=== PATIENT | male | born 1980 | race Caucasian/White ===

== ENCOUNTER 2021-03-26 08:31 | Outpatient (REF) | payer SELFPAY ==
[2021-03-26 16:07] LABS: HCT 44.8 % (40.0-50.0); HGB 15.2 g/dL (13.5-17.5); MCH 29.9 pg (27.0-33.0); MCHC 33.9 % (32.0-36.0); MCV 88.2 fL (80-95); MPV 14.2 fL (8.0-11.0); Platelet Count 185 10^3/uL (130-400); RBC 5.08 10^6/uL (4.36-5.78); RDW 11.8 % (11.8-14.1); RDW-SD 38.3 fL
[2021-03-26 16:27] LABS: ALT 52 U/L (16-63); AST 27 U/L (15-37); Albumin 4.5 g/dL (3.4-5.0); Alkaline Phosphatase 83 U/L (46-116); Anion Gap 9.5 mmol/L (3-11); BUN 17 mg/dL (7-18); Bilirubin, Total 0.4 mg/dL (0.2-1.0); CO2 27.5 mmol/L (21.0-32.0); CREATININE 0.9 mg/dL (0.70-1.30); Calcium 9.4 mg/dL (8.5-10.1); Calculated LDL 158 mg/dL (<100); Chloride 104 mmol/L (98-107); Cholesterol 215 mg/dL (<200); Glucose 84 mg/dL (74-106); HDL Cholesterol 45 mg/dL (40-60); Potassium 4.2 mmol/L (3.5-5.1); Sodium 141 mmol/L (136-145); Total Protein 7.5 g/dL (6.4-8.2); Triglyceride 61 mg/dL (<150)
== END 2021-03-26 08:32 | disposition home or self-care (01) ==
LOC: NCHCN 08:31
PROVIDERS: Visit Provider Physician Assistant
DX: Z00.00 Encounter for general adult medical examination without abnormal findings (principal); Z13.0 Encounter for screening for diseases of the blood and blood-forming organs and certain disorders involving the immune mechanism; Z13.228 Encounter for screening for other metabolic disorders; Z13.220 Encounter for screening for lipoid disorders
CPT/HCPCS: 80053; 80061; 85027

== ENCOUNTER 2022-05-12 18:49 | Outpatient (REF) | payer OTHER, SELFPAY ==
[2022-05-14 10:45] LABS: COVID-19 RT-PCR UVMMC Result Negative (Negative)
== END 2022-05-12 18:50 | disposition home or self-care (01) ==
LOC: LBN 18:49
PROVIDERS: Visit Provider Physician Assistant Medical
DX: Z20.822 Contact with and (suspected) exposure to COVID-19 (principal); R53.81 Other malaise
CPT/HCPCS: U0003

== ENCOUNTER 2022-08-17 20:42 | Outpatient (REF) | payer OTHER, SELFPAY ==
[2022-08-17 20:15] LABS: Calculated LDL 132 mg/dL (<100); Cholesterol 212 mg/dL (<200); HDL Cholesterol 46 mg/dL (40-60); TSH 2.48 uIU/mL (0.36-3.74); Triglyceride 173 mg/dL (<150)
== END 2022-08-17 20:43 | disposition home or self-care (01) ==
LOC: NCHCN 20:42
PROVIDERS: Visit Provider Physician Assistant
DX: R53.83 Other fatigue (principal); E78.5 Hyperlipidemia, unspecified
CPT/HCPCS: 80061; 84439; 84443

== ENCOUNTER 2024-08-02 00:49 | Outpatient (CLI) | payer OTHER, SELFPAY ==
--- OUTSIDE RECORDS SUMMARY | 2024-08-02 00:53 | XMS_ITS | Encounter Summary ---
Author Organization [facility] Address [address] [place] [address] Care Team Providers Care Dinkey Operator Name Role Phone Unavailable Primary Care Provider Unavailabl e Encounter Details Date Type Department Care Team (Late st Contact Info) Description 05/13/2022 Lab Requisition [facility] Pathology & Laboratory Medicine - [facility] [address] [place] [address] Outr Resulting Lab, Provider Social History Tobacco Use Types Packs/Day Years Used Date Smoking Tobacco: Never Assessed Sex and Gender Information Value Date Recorded Sex Assigned at Not on file Gender Identity Not on file Sexual Orientation Not on file documented as of this encounter Plan of Treatment Not on file documented as of this encounter Procedures Procedure Name Priority Date/Time Associated Diagnosis Comments ZZCOVID-19 TEST [facility] PCR Today 05/12/2022 17:19 EDT COVID-19 TESTING Routine 05/12/2022 17:1 9 EDT documented in this encounter Results * COVID-19 TEST [facility] PCR (05/12/2022 17:19 EDT) Swab 05/12/2022 17:1 9 EDT 05/13/2022 16:44 EDT Provider Outr Resulting Lab MICROBIOLOGY - GENERAL ORDERABLES [facility] [address] [place] [address] * COVID-19 TESTING (05/12/2022 17:19 EDT) COVID-19 rt-PCR Result Negative Negative 05/14/2022 10:39 EDT [facility] Comment: This test has not been FDA cleared or approved. This test has been authorized by FDA under an EUA for use by authorized laboratories. This test has been authorized only for detection of nucleic acid from 2019-nCoV, not for any other viruses or pathogens. This test is only authorized for the duration of the declaration that circumstances exist justifying the authorization of emergency use of in vitro diagnostic tests for detection and/or diagnosis of 2019-nCoV under section 564(b)(1) of Act, 21 U.S.C ?? 360bbb-3(b) (1), unless the authorization is terminated or revoked sooner. Negative results do not preclude 2019-nCoV infection and should not be used as the sole basis for treatment or other patient management decisions. Negative results must be combined with clinical observations, patient history, and epidemiological information. Testing was performed using the alexis SARS-CoV-2 assay ([employer] on the Alexis 6800 System Performing Lab [facility] [address] [facility] 05/14/2022 10:39 EDT [facility] Swab 05/12/2022 17:1 9 EDT 05/13/2022 16:44 EDT Provider Outr Resulting Lab MICROBIOLOGY - GENERAL ORDERABLES [facility] [address] [place] [address] documented in this encounter Visit Diagnoses Not on filedocumented in this encounter
--- OUTSIDE RECORDS SUMMARY | 2024-08-02 00:53 | XMS_ITS | Referral Summary ---
Author Organization [facility] Address [address] [place] [address] Care Team Providers Care Surgery Aide Name Role Phone Unavailable Primary Care Provider Unavailabl e Social History Tobacco Use Types Packs/Day Years Used Date Smoking Tobacco: Never Assessed Sex and Gender Information Value Date Recorded Sex Assigned at Not on file Gender Identity Not on file Sexual Orientation Not on file Plan of Treatment Not on file
--- OUTSIDE RECORDS SUMMARY | 2024-08-02 00:53 | XMS_ITS | Clinical Summary ---
Author Organization [facility] Address [address] [place] [address] Care Team Providers Care Die Setter Name Role Phone Unavailable Primary Care Provider Unavailabl e Social History Tobacco Use Types Packs/Day Years Used Date Smoking Tobacco: Never Assessed Sex and Gender Information Value Date Recorded Sex Assigned at Not on file Gender Identity Not on file Sexual Orientation Not on file Plan of Treatment Health Maintenance Due Date Last Done Comments Hepatitis C Screen 1980 Hepatitis B Vaccine (1 of 3 - 19+ 3-dose series) 11/26 COVID-19 Vaccine (2022-24 season) 2023
--- NOTE | 2024-08-02 08:27 | DI.RAD_ITS ---
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 TECHNIQUE: 2D digital imaging was performed. COMPARISON: No exams were available for comparison FINDINGS: 3 views No evidence of fracture or diastasis of the Lisfranc joint. There are advanced degenerative changes in the great toe metatarsophalangeal joint with relatively un iform advanced joint space narrowing as well as marginal osteophytes on both sides the joint. Also d egenerative subarticular cysts. Other MTP joints appear unremarkable as do the tarsal metatarsal alejo nts. No pes planus. Accessory os supra navicularis incidentally noted. 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 DATA REPOSITORY: RADIATION DOSE DELIVERED:
== END 2024-08-02 01:09 ==
LOC: DI 00:49
PROVIDERS: Visit Provider Physician Assistant
DX: M19.071 Primary osteoarthritis, right ankle and foot (principal)
CPT/HCPCS: 73630

== ENCOUNTER 2024-10-16 09:48 | Emergency (ER) | payer OTHER, SELFPAY ==
[2024-10-16 09:57] VITALS: BP 133/84; PULSE 80; RESP 20; TEMP 36.8; O2SAT 98
[2024-10-16 10:00] VITALS: BP 133/84; PULSE 80; RESP 20; TEMP 36.8; O2SAT 98
--- NOTE | 2024-10-16 10:30 | DI.RAD_ITS ---
Exam(s) XR CHEST 2V PA LATERAL EXAM: XR CHEST 2V PA LATERAL CLINICAL HISTORY: chest pain after swallowing fb TECHNIQUE: 2D digital imaging was performed. Two views. COMPARISON: No exams were available for comparison FINDINGS: HEART: Normal size. Aorta: Not dilated. PULMONARY VASCULATURE: Normal. MEDIASTINUM: Unremarkable. LUNGS: Clear. PLEURAL SPACE: No pleural effusion or pneumothorax. BONE:Unremarkable for age. SOFT TISSUES: Unremarkable. IMPRESSION: No acute abnormality. No radiopaque foreign body is visualized. DATA REPOSITORY: RADIATION DOSE DELIVERED:
--- NOTE | 2024-10-16 11:03 | W.ED.GENAD ---
Discharge Plan Disposition Patient Disposition: Home Discharge Details Clinical Impression: Abrasion of esophagus Primary Care Provider: Ralph Peacock ED Provider: Myrna Busch Home Meds and New Rx's Prescriptions: No Action No Known Home Meds Discharge Instructions Additional Instructions: Stay away from salty foods, spicy foods, pretzels, chips and half fluids since with foods only until the symptoms improve I suspect you have an abrasion or scratch in your esophagus which is causing some discomfort this will likely heal on its own I do not have suspicion that you have a foreign body lodged in her throat You may take ibuprofen and Tylenol as needed for discomfort please be reevaluated by your doctor should you have persistent symptoms lasting longer than 3 to 5 days, you may need a scope of your esophagus in the future Referrals: Ralph Peacock [Primary Care Provider] - 3 days Discharge Data Discharge Date/Time-TO BE ENTERED AT DEPARTURE: 10/16/24 11:16 HPI General Date/Time Provider Initiated Documentation: 10/16/24 10:14. HPI Narrative: This 43-year-old male was drinking a frappe through a straw from Pricing Assistant when he felt sharp object he suspects is probably the caramel cookie on the top of that. He states he feels a persistent irritation in his throat and is wondering if he injured his esophagus. He denies any shortness of breath and states he is able to eat and drink since the event with some discomfort. Denies any additional complaints at this time. Denies any current chest discomfort or shortness of breath. Related Data Home Medications ?Medication ?Instructions ?Recorded ?Confirmed Unknown [No Known Home Meds] 10/16/24 10/16/24 Allergies Allergy/AdvReac Type Severity Reaction Status Date / Time amoxicillin Allergy Hives Unverified 10/16/24 10:02 General Stated Complaint: GenMedical ALEXIA: 4 Exam Narrative Exam Narrative: 43-year-old male in no acute distress, alert and oriented, maintaining secretions, no stridor, lungs clear to auscultation, no crepitus no visual foreign body oropharynx Course Vital Signs Vital signs: Vital Signs Temperature 36.8 C 10/16/24 09:57 Pulse 80 10/16/24 09:57 Respiratory Rate 20 10/16/24 09:57 Blood Pressure 133/84 10/16/24 09:57 Pulse Oximetry 98 10/16/24 09:57 Temperature 36.8 C 10/16/24 10:00 Pulse 80 10/16/24 10:00 Respiratory Rate 20 10/16/24 10:00 Respiratory Effort Normal 10/16/24 10:42 Respiratory Pattern Normal 10/16/24 10:42 Blood Pressure 133/84 10/16/24 10:00 Blood Pressure Position Sitting 10/16/24 10:00 Pulse Oximetry 98 10/16/24 10:00 Oxygen Delivery Method Room Air 10/16/24 10:00 Oxygen Flow Rate 0 10/16/24 09:57 Medical Decision Making 43-year-old male presenting with report of ingested foreign body accidentally, maintaining secretions, chest x-ray was ordered given location of pain and no evidence of acute abnormality per radiology interpretation my review. There is no indication for need for foreign body or esophageal foreign body removal at this time, I suspect patient has an abrasion to his esophagus. He is encouraged to have regular fluids and this moves phase as tolerated. Return precautions reviewed and patient expressed understanding Quality:SDOH Health Related Social Needs: No Data to Display PFSH All Active Problems (Updated 10/16/24 @ 11:05 by ROSELYN Maldonado) Abrasion of esophagus (Acute) Social History Smoking risk assessment performed?: No Drug use: Daily Substance use type: marijuana Do you feel safe in your relationship?: Yes
[2024-10-16 11:13] VITALS: BP 130/80; PULSE 76; RESP 18; TEMP 36.7; O2SAT 100
== END 2024-10-16 11:16 | disposition home or self-care (01) ==
PROVIDERS: Emergency Provider Physician Assistant; PCP Physician Assistant
DX: S27.818A Other injury of esophagus (thoracic part), initial encounter (principal); T18.108A Unspecified foreign body in esophagus causing other injury, initial encounter; W44.9XXA Unspecified foreign body entering into or through a natural orifice, initial encounter; Y93.89 Activity, other specified; Y92.511 Restaurant or cafe as the place of occurrence of the external cause
CPT/HCPCS: 99283; 71046; 99285

== ENCOUNTER 2024-12-10 02:24 | Emergency (ER) | payer OTHER, SELFPAY ==
[2024-12-10 02:26] VITALS: BP 117/66; PULSE 62; RESP 16; TEMP 36.1; O2SAT 100
--- NOTE | 2024-12-10 02:27 | W.ED.GENAD ---
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 Contact your dentist and arrange for follow-up within the week. You may use acetaminophen or ibuprofen as needed for pain and discomfort. Return to ED for any significantly worsening pain, facial swelling or redness, difficulty breathing, other concerns. Discharge Data Discharge Date/Time-TO BE ENTERED AT DEPARTURE: 12/10/24 03:10 HPI General Mode of arrival: ambulatory. Date/Time Provider Initiated Documentation: 12/10/24 02:27. Limitations to Documentation: no limitations. Information obtained by: patient and RN notes reviewed. HPI Narrative: Patient presents to ED with concern for infection status post extraction 1 week ago. Patient had left upper tooth extraction performed 1 week ago. He reports that he had been on antibiotics prior to extraction for infection. Has continued to have discomfort, has had increased pain and swelling in the area. Denies any fever. Denies any facial swelling or erythema. Denies any difficulty swallowing. Concerned that he may have recurrent infection and presents to ED. Related Data Home Medications ?Medication ?Instructions ?Recorded ?Confirmed azithromycin 250 mg tablet See Rx Instructions PO .COMPLEX #6 12/10/24 tabs chlorhexidine gluconate 0.12 % 15 ml mucous membrane BID #120 mL 12/10/24 mouthwash Previous Rx's ?Medication ?Instructions ?Recorded azithromycin 250 mg tablet See Rx Instructions PO .COMPLEX #6 12/10/24 tabs chlorhexidine gluconate 0.12 % 15 ml mucous membrane BID #120 mL 12/10/24 mouthwash Allergies Allergy/AdvReac Type Severity Reaction Status Date / Time amoxicillin Allergy Hives Unverified 12/10/24 02:31 General ALEXIA: 4 Review of Systems Narrative: Per HPI Exam Narrative Exam Narrative: Const: WDWN male in NAD. VS per triage. HEENT: NC/AT. Normal facial exam. Extraction site with friable gingiva, bleeding, no chiquis pus, tender/painful. Gingival ulceration present along entire left upper gum. Neck: Supple. Trachea midline. Lungs: Normal respiratory effort. Neuro: A+O x 3. Normal speech, mentation, gait. Cranial nerves II - XII grossly intact. No gross motor or sensory deficit. Medical Decision Making Patient presenting to ED with increasing pain and swelling status post tooth extraction a week ago. He has gingival swelling and ulceration as well as friable tissue and bleeding involving the extraction site in the left upper gum anteriorly. Will start on chlorhexidine rinses as well as azithromycin for possible continued dental infection despite extraction of infected tooth. Patient does report allergy to amoxicillin. He is to contact the dentist for follow-up. Return precautions provided. PFSH All Active Problems (Updated 12/10/24 @ 02:44 by Gene Jesus MD) Gingivitis (Acute) Social History Smoking/Tobacco Use Status: Current every day Tobacco Type: cigarettes Smoking risk assessment performed?: Yes Alcohol Intake: never Drug use: Daily Substance use type: marijuana Do you feel safe in your relationship?: Yes
== END 2024-12-10 03:10 | disposition home or self-care (01) ==
PROVIDERS: Emergency Provider Emergency Medicine; PCP Physician Assistant
DX: K08.89 Other specified disorders of teeth and supporting structures (principal); K05.00 Acute gingivitis, plaque induced; Z98.818 Other dental procedure status
CPT/HCPCS: 99283

== ENCOUNTER 2025-01-24 12:09 | Outpatient (REF) | payer OTHER, SELFPAY ==
[2025-01-24 15:19] LABS: HCT 42.5 % (40.0-50.0); MCH 30.2 pg (27.0-33.0); MCHC 32.9 % (32.0-36.0); MCV 92 fL (80-95); Platelet Count 164 10^3/uL (130-400); RBC 4.63 10^6/uL (4.36-5.78); RDW 12.5 % (11.8-14.1); RDW-SD 42.4 fL; WBC 6.66 10^3/uL (4.4-10.8)
[2025-01-24 15:32] LABS: Calculated LDL 94 mg/dL (<100); Cholesterol 163 mg/dL (<200); HDL Cholesterol 58 mg/dL (>or=40); Triglyceride 58 mg/dL (<150)
== END 2025-01-24 12:10 | disposition home or self-care (01) ==
LOC: NCHCN 12:09
PROVIDERS: PCP Physician Assistant; Visit Provider Physician Assistant
DX: E78.5 Hyperlipidemia, unspecified (principal); F17.210 Nicotine dependence, cigarettes, uncomplicated
CPT/HCPCS: 80061; 85027

== ENCOUNTER 2025-03-12 17:52 | Outpatient (REF) | payer OTHER, SELFPAY ==
--- NOTE | 2025-03-12 11:10 | SKI_PTH ---
PATIENT: Chicho Ozuna LOC: [facility] U#:[id number] AGE/SX: 44/M ROOM: RE03/12/[address]: Ralph Peacock : 1980 BED: DIS: 03/12/2025 SPEC #: [id number] RECD: 03/12/25 17:59 STATUS: MARY RE #: [id number] RUBY: 03/12/25 11:[address]: Ralph Peacock DEPT: Surgical Specimen RECD BY: Myrna Ac Tissues: 1 - SKIN BIOPSY(SHAVE/PUNCH) 2 - SKIN BIOPSY(SHAVE/PUNCH) Procedures: SKIN LEVEL 4 Comments: [id number]
== END 2025-03-12 17:53 | disposition home or self-care (01) ==
LOC: NCHCN 17:52
PROVIDERS: PCP Physician Assistant; Visit Provider Physician Assistant
DX: D22.9 Melanocytic nevi, unspecified (principal)
CPT/HCPCS: 88305

== ENCOUNTER 2025-05-14 08:51 | Emergency (ER) | payer OTHER, SELFPAY ==
[2025-05-14 08:56] VITALS: BP 143/48; PULSE 100; RESP 20; TEMP 36.8; O2SAT 100
--- NOTE | 2025-05-14 09:15 | DI.RAD_ITS ---
Exam(s) XR CHEST 2V PA LATERAL EXAM: XR CHEST 2V PA LATERAL CLINICAL HISTORY: palpitations and CP TECHNIQUE: 2D digital imaging was performed. Two views. COMPARISON: CR XR CHEST 2V PA LATERAL from 10/16/2024 FINDINGS: HEART: Normal size. Aorta: Not dilated. PULMONARY VASCULATURE: Normal. MEDIASTINUM: Unremarkable. LUNGS: Clear. PLEURAL SPACE: No pleural effusion or pneumothorax. BONE:Unremarkable for age. SOFT TISSUES: Unremarkable. IMPRESSION: No acute abnormality. DATA REPOSITORY: RADIATION DOSE DELIVERED:
--- NOTE | 2025-05-14 09:15 | RT.EKG_ITS ---
APPROVED REPORT Exam: Resting ECG Reason for Exam: palpitations Patient Location: E HR:101 bpm ECG Measurements Heart Rate 101 AXIS WA 125 P 59 QRSd 89 QRS 79 QT 357 T 6 QTc 464 Conclusion Sinus tachycardia...rate> 99 No Occlusion [facility]
[2025-05-14 09:34] LABS: Abs Immature Grans 0.03 10^3/uL (0.0-0.06); HCT 36.6 % (40.0-50.0); HGB 12.4 g/dL (13.5-17.5); Immature Grans % 0.4 %; MCH 30.1 pg (27.0-33.0); MCHC 33.9 % (32.0-36.0); MCV 89 fL (80-95); MPV 12.2 fL (8.0-11.0); Platelet Count 173 10^3/uL (130-400); RBC 4.12 10^6/uL (4.36-5.78); RDW 12.2 % (11.8-14.1); RDW-SD 39.8 fL; WBC 8.04 10^3/uL (4.4-10.8)
[2025-05-14] MEDS: LORazepam 20 MG/10 ML VIAL IVP (09:37)
[2025-05-14] MEDS: Normal Saline 1,000 ML 1000 ML IV (09:38)
[2025-05-14 09:58] LABS: ALT 38 U/L (16-63); AST 33 U/L (15-37); Albumin 3.7 g/dL (3.4-5.0); Alkaline Phosphatase 84 U/L (46-116); Anion Gap 9.9 mmol/L (3-11); BUN 14 mg/dL (7-18); Bilirubin, Total 0.4 mg/dL (0.2-1.0); CO2 26.1 mmol/L (21.0-32.0); Calcium 8.9 mg/dL (8.5-10.1); Chloride 102 mmol/L (98-107); Estimated GFR 113.32 (mL/min/1.73m2); Glucose 112 mg/dL (74-106); Magnesium 1.9 mg/dL (1.8-2.4); Potassium 4.0 mmol/L (3.5-5.1); Sodium 138 mmol/L (136-145); Total Protein 6.9 g/dL (6.4-8.2)
[2025-05-14 10:10] LABS: TSH (W/Ref FT4) 1.67 uIU/mL (0.36-3.74)
[2025-05-14 10:14] LABS: Troponin I < 4 ng/L (<or=76)
--- NOTE | 2025-05-14 10:33 | ED.GENADUL_ITS ---
Discharge Plan Disposition Patient Disposition: Home Condition: Good Discharge Details Clinical Impression: Anxiety, Palpitations Primary Care Provider: Ralph Peacock ED Provider: Radha Ontiveros Home Meds and New Rx's Prescriptions: Continued hydroxyzine HCl 25 mg tablet 25 - 50 mg PO QHS PRN clindamycin HCl 150 mg capsule 150 mg PO TID Patient Comments: TAKE THREE CAPSULES BY MOUTH THREE TIMES A DAY FOR 7 DAYS Discharge Instructions Instructions: Anxiety, Adult ED Additional Instructions: As we discussed, your imaging and labs are reassuring here today. I believe that the increased use of THC may have exacerbated your anxiety. Please make sure that you are not using more than your typical. Please encourage hydration. I encourage you to follow-up with your primary care sithin the next two weeks and discuss your anxiety further with them as well. If you develop any recurrent chest pain, shortness of breath, fever/chills or other new/worsening symptom please seek care urgently once again. Referrals: Ralph Peacock [Primary Care Provider, Medicine] HPI General Date/Time Provider Initiated Documentation: 05/14/25 08:59 . Limitations to Documentation: no limitations . Information obtained by: patient and RN notes reviewed . History of Present Illness 44 year old M presents to the emergency department with the chief complaint of anxiety, palpitations, chest tightness, described as severe, Quality is described as other (tight), and is localized to the chest. Patient reports no radiation. Patient started experiencing this minute(s) and it has been constant. No relieving factors improve symptom(s), Medication worsens symptoms (came on after eating multiple THC gummies) . Patient notes chest pain; denies cough, diaphoresis, fever/chills, headaches, nausea/vomiting, rash, shortness of breath, syncope and weakness. Patient did receive the following treatments prior to arrival, none Related Data Home Medications ?Medication ?Instructions ?Recorded ?Confirmed hydroxyzine HCl 25 mg tablet 25 - 50 mg PO QHS PRN 05/14/25 clindamycin HCl 150 mg capsule 150 mg PO TID 05/14/25 05/14/25 Allergies Allergy/AdvReac Type Severity Reaction Status Date / Time Penicillins Allergy Severe rash and Verified 05/05/25 17:40 swelling amoxicillin Allergy Hives Unverified 05/05/25 17:40 General Stated Complaint: Anxiety ALEXIA: 4 Review of Systems Constitutional Constitutional: Reports as per HPI, Denies chills, Denies fever(s), Denies headache(s) and Denies poor appetite Eyes Eyes: Denies change in vision ENT Ears, Nose, Mouth, and Throat: Denies dizziness and Denies headache(s) Cardiovascular Cardiovascular: Reports as per HPI, Denies dyspnea and Denies dyspnea on exertion Respiratory Respiratory: Reports as per HPI, Denies chest congestion, Denies cough, Denies pain on inspiration, Denies pain with cough, Denies dyspnea and Denies dyspnea on exertion Gastrointestinal Gastrointestinal: Reports as per HPI, Denies abdominal pain, Denies diarrhea, De nies nausea and Denies vomiting Genitourinary Genitourinary: Denies system reviewed and no additional complaints, except as documented (denies change in urinary habits) Musculoskeletal Musculoskeletal: Reports as per HPI and Denies back pain Integumentary/Breasts Skin/Breast: Reports as per HPI and Denies rash Neurologic Neurologic: Reports as per HPI, Denies dizziness and Denies headache(s) Exam Const General: cooperative, healthy appearing, comfortable, no acute distress, well developed and anxious Nutritional Appearance: average body habitus and well nourished Orientation: alert, awake and oriented x3 Chest Chest: normal inspection of the chest, normal palpation of entire chest wall and no crepitus Resp Effort & Inspection: normal respiratory effort, able to speak in complete sentences and no respiratory distress Auscultation: clear to auscultation bilaterally, no rales, no rhonchi and no wheezes Cardio Rate: regular rate Rhythm: regular rhythm Heart Sounds: S1 normal and S2 normal GI Inspection: normal to inspection, no edema and non-distended Palpation: soft, no guarding, not rigid and nontender Skin General skin exam: no rashes or lesions noted Trauma: no lacerations or abrasions Neuro General: patient alert, patient awake and patient oriented x3 Cognition: normal cognition Speech: speech normal Extrem General: normal to inspection, capillary refill normal, no pedal edema and no calf tenderness Course Vital Signs Vital signs: Vital Signs Temperature 36.8 C 05/14/25 08:56 Pulse 100 H 05/14/25 08:56 Respiratory Rate 20 05/14/25 08:56 Blood Pressure 143/48 H 05/14/25 08:56 Pulse Oximetry 100 05/14/25 08:56 Temperature 36.8 C 05/14/25 08:56 Pulse 100 H 05/14/25 08:56 Respiratory Rate 20 05/14/25 08:56 Blood Pressure 143/48 H 05/14/25 08:56 Pulse Oximetry 100 05/14/25 08:56 Oxygen Delivery Method Room Air 05/14/25 08:56 Oxygen Flow Rate 0 05/14/25 08:56 Lab/Test Results Lab/Test Results: Laboratory Tests Range/Units 05/14/25 09:18 WBC (4.4-10.8) 10^3/uL 8.04 RBC (4.36-5.78) 10^6/uL 4.12 L Hgb (13.5-17.5) g/dL 12.4 L Hct (40.0-50.0) % 36.6 L MCV (80-95) fL 89 MCH (27.0-33.0) pg 30.1 MCHC (32.0-36.0) % 33.9 RDW (11.8-14.1) % 12.2 Plt Count (130-400) 10^3/uL 173 MPV (8.0-11.0) fL 12.2 H Immature Gran % % 0.4 Neutrophils % % 49.8 Lymphocytes % % 37.7 Monocytes % % 8.8 Eosinophils % % 2.9 Basophils % % 0.4 Nucleated RBC % (0.0-0.3) % 0.0 Absolute Neutrophils (1.2-6.7) 10^3/uL 4.01 Absolute Lymphocytes (1.2-3.4) 10^3/uL 3.03 Absolute Monocytes (0.1-0.8) 10^3/uL 0.71 Absolute Eosinophils (0.0-0.7) 10^3/uL 0.23 Absolute Basophils (0.0-0.2) 10^3/uL 0.03 Sodium (136-145) mmol/L 138 Potassium (3.5-5.1) mmol/L 4.0 Chloride (98-107) mmol/L 102 Carbon Dioxide (21.0-32.0) mmol/L 26.1 Anion Gap (3-11) mmol/L 9.9 BUN (7-18) mg/dL 14 Creatinine (0.70-1.30) mg/dL 0.8 Est GFR (CKD-EPI 2020) (mL/min/1.73m2) 113.32 Glucose (74-106) mg/dL 112 H Calcium (8.5-10.1) mg/dL 8.9 Magnesium (1.8-2.4) mg/dL 1.9 Total Bilirubin (0.2-1.0) mg/dL 0.4 AST (15-37) U/L 33 ALT (16-63) U/L 38 Alkaline Phosphatase (46-116) U/L 84 Troponin I (<or=76) ng/L < 4 Total Protein (6.4-8.2) g/dL 6.9 Albumin (3.4-5.0) g/dL 3.7 TSH (0.36-3.74) uIU/mL 1.67 Medical Decision Making The patient is a pleasant 44-year-old male with past medical history significant for depression anxiety Hyperlipidemia, presenting there with chief complaint of panic attack, continued anxiety, palpitations and chest tightness. He reports that he got off work this morning, typically works shift production supervisor, when he was feeling anxious and ate 3 THC Gummies. He estimates this to about 30 mg but also reports of these are new brand for him so is unclear on the actual THC content. He reports that this then seemed to greatly exacerbate his anxiety. He states that typically he does have a baseline level of anxiety but does not experience chest tightness and palpitations like this. 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 He did have a stress test in his 20s which he reports was normal. He reports that he had this for palpitations. No nausea or vomiting. No lower extremity pain, calf tenderness, shortness of breath, back pain. Patient denies any suicidal or homicidal ideations. On exam, patient appears very anxious but otherwise nontoxic. He is hemodynamically stable. Lungs are clear, normal cardiac exam. He is 2+ distal pulses. No lower extremity edema. No calf pain. Abdomen is benign, no epigastric discomfort. No pain with palpation about the chest. Nothing reproducible. Symptoms do seem to be lessening some. At this point, his most likely diagnosis is severe anxiety. However, with his familial history as well as his symptoms, I do feel that is appropriate for us to evaluate for an underlying cardiac issue that may be brought out with his lower anxiety and slight tachycardia. Labs reviewed. No leukocytosis. Hemoglobin slightly low at 12.4. CMP without significant abnormality. Initial troponin is less than 4. Delta is pending. TSH was also obtained given the palpitations and anxiety, this was within normal limits. Chest x-ray obtained and reviewed by radiology no acute abnormality appreciated. Patient was given half milligram of Ativan, is resting and will continue to monitor. Plan for delta troponin. If this is within normal limits with no significant change, plan to discharge home with close primary care follow-up. Repeat troponin remains unchanged. Patient is doing quite well at this time, resting and sleeping. Symptoms have resolved. With reassuring workup here today, and was associated with anxiety, likely exacerbated by the elevated content of THC. I did encourage that he look closer at the dosing on the package, this was new brand for him. I also encourage that he discuss his an xiety further with his primary care. I encourage follow-up in the next 1 to 2 weeks. Return precautions were discussed. Patient is currently on clindamycin for dental infection, gave 1 dose here to keep him on schedule. All of his questions and concerns were addressed and he is in agreement with this plan. Magdalene [facility] All Active Problems (Updated 05/14/25 @ 11:12 by ROSELYN Terrazas) Palpitations (Acute) Anxiety (Chronic) Smoker (Acute) Weight loss (Acute) referral notes may be related to multiple dental extractions Esophageal dysphagia (Acute) Medical History (Updated 05/14/25 @ 11:12 by ROSELYN Terrazas) Dysphagia Infection of tooth Chronic depression Anxiety disorder Hyperlipidemia Condyloma acuminatum Surgical History (Updated 01/28/25 @ 15:45 by Fina Gant RN) History of tooth extraction Social History Smoking/Tobacco Use Status: Current every day Tobacco Type: cigarettes Smoking risk assessment performed?: Yes Alcohol Intake: never Drug use: Daily Substance use type: marijuana Do you feel safe in your relationship?: Yes
[2025-05-14 11:04] LABS: Troponin I 4 ng/L (<or=76)
[2025-05-14] MEDS: Clindamycin 150 MG CAP 450 MG PO (11:30)
[2025-05-14 14:30] VITALS: RESP 18
== END 2025-05-14 14:30 | disposition home or self-care (01) ==
PROVIDERS: Emergency Provider Physician Assistant; PCP Physician Assistant
DX: F41.9 Anxiety disorder, unspecified (principal); R00.2 Palpitations; E78.5 Hyperlipidemia, unspecified; F17.210 Nicotine dependence, cigarettes, uncomplicated
CPT/HCPCS: 80053; 93005; 96361; 96374; 99284; 71046; 83735; 84443; 84484; 85025; 93010; J2060